=== PATIENT | male | born 1990 | race Two or more races ===

== ENCOUNTER 2024-02-29 18:24 | Emergency (ER) | payer MEDICAID, OTHER ==
[~2024-02-29] VITALS: Ht 172.7 cm; Wt 141.8 kg
--- NOTE | 2024-02-29 19:01 | ED.PDOC ---
History of Present Illness HPI Comments A 33 year old male presents to the ED with a chief complaint of LT sided facial numbness onset today. Patient states he began experiencing LT sided facial numbness today, took Benadryl and did not improve symptoms. Patient denies any past medical history as well as weakness, chest pain, shortness of pain, he adache, nausea, vomiting, diarrhea, dizziness, dysuria, hematuria. No other symptoms or modifying factors present at this time. Patient does not display any signs of facial drooping or inability to close eye. Chief Complaint: Face pain Time Seen by MD: 18:35 Reviewed Notes: Nurses Notes, Medications, Allergies Allergies: Coded Allergies: NO KNOWN ALLERGIES (Unverified , 02/29/24) Information Source: Patient Mode of Arrival: Ambulatory Severity: Moderate Timing: Hours Duration: Since onset Prehospital treatment: None Past Medical History PAST MEDICAL HISTORY: Denies Surgical History: Denies all surgeries Family History Family History: Reviewed,noncontributory to illness, No family hx of Cancer, No family hx of DM, No family hx of Heart marilou, No family hx of HTN, No family hx ofKidney marilou, No family hx of Liver marilou, No family hx of Lung marilou, No family hx of Stroke Social History Smoker: Non-Smoker Alcohol: Denies ETOH Use Drugs: Denies Drug Use Lives In: Home Constitutional: denies: chills, diaphoresis, fatigue, fever, malaise, sweats, weakness, others EENTM: denies: blurred vision, double vision, ear bleeding, ear discharge, ear drainage, ear pain, ear ringing, eye pain, eye redness, hearing loss, mouth pain, mouth swelling, nasal discharge, nose bleeding, nose congestion, nose pain, photophobia, tearing, throat pain, throat swelling, voice changes, others Respiratory: denies: cough, hemoptysis, orthopnea, SOB at rest, shortness of breath, SOB with excertion, stridor, wheezing, others Cardiovascular: denies: chest pain, dizzy spells, diaphoresis, Dyspnea on exertion, edema, irregular heart beat, left arm pain, lightheadedness, palpitations, PND, syncope, others Gastrointestinal: denies: abdomen distended, abdominal pain, blood streaked bowels, constipated, diarrhea, dysphagia, difficulty swallowing, hematemesis, melena, nausea, poor appetite, poor fluid intake, rectal bleeding, rectal pain, vomiting, others Genitourinary: denies: burning, dysuria, flank pain, frequency, hematuria, incontinence, penile discharge, penile sore, pain, testicle pain, testicle swelling, urgency, others Neurological: reports: left sided numbness (facial numbness); denies: dizziness, fainting, headache, left sided weakness, numbness, paresthesia, pre- existing deficit, right sided numbness, right sided weakness, seizure, speech problems, tingling, tremors, weakness, others Musculoskeletal: denies: back pain, gout, joint pain, joint swelling, muscle pain, muscle stiffness, neck pain, others Integumetry: denies: bruises, change in color, change in hair/nails, dryness, laceration, lesions, lumps, rash, wounds, others Allergic/Immunocompromised: denies: Difficulty Healing, Frequent Infections, Hives, Itching, others Hematologic/Lymphatic: denies: anemia, blood clots, easy bleeding, easy bruising, swollen glands, others Endocrine: denies: excessive hunger, excessive sweating, excessive thirst, excessive urination, flushing, intolerance to cold, intolerance to heat, unexplained weight gain, unexplained weight loss, others Psychiatric: denies: anxiety, bipolar disorder, depression, hopeless, panic disorder, schizophrenia, sleepless, suicidal, others All Other Systems: Reviewed and Negative Physical Exam General Appearance: Mild Distress (Distress with some anxiety related to the facial numbness.), Normal, Obese HEENT: Head (Unremarkable cranial evaluation. Left-sided face is unremarkable for trauma. No edema or ecchymosis. No drooping or eyelid lagging.), Normal ENT Inspection, Pharynx Normal, TMs Normal Neck: Full Range of Motion, Non-Tender, Normal, Normal Inspection Respiratory: Chest Non-Tender, Lungs Clear, No Accessory Muscle Use, No Respiratory Distress, Normal Breath Sounds Cardiovascular: No Edema, No JVD, No Murmur, No Gallop, Normal Peripheral Pulses, Regular Rate/Rhythm Breast Exam: Deferred Gastrointestinal: No Organomegaly, Non Tender, No Pulsatile Mass, Normal Bowel Sounds, Soft Genitalia: Deferred Pelvic: Deferred Rectal: Deferred Extremities: No calf tenderness, Normal capillary refill, Normal inspection, Normal range of motion, Non-tender, No pedal edema Musculoskeletal : Apperance: Normal Neurologic: Alert, No Motor Deficits, Normal Affect, Normal Mood, No Sensory Deficits Cerebellar Function: Normal Reflexes: Normal Skin: Dry, Normal Color, Warm Lymphatic: No Adenopathy Was a procedure done? Was a procedure done?: No Differential Dx Considerations may include: Electrolyte abnormality, sepsis, intracranial neoplasm, trigeminal neuralgia, temporal neuritis X-Ray, Labs, Meds, VS Vital Signs Date Time Temp Pulse Resp B/P (MAP) Pulse Ox O2 Delivery O2 Flow Rate FiO2 02/29/24 21:42 82 02/29/24 21:20 87 19 99 Room Air 02/29/24 21:20 98.8 87 19 136/86 (103) 99 98.8 02/29/24 18:48 97.6 88 18 143/96 (112) 99 Lab Test 02/29/24 21:02 Range/Units White Blood Count 11.9 H 4.4-10.8 10^3/uL Red Blood Count 5.61 4.5-5.90 10^6/uL Hemoglobin 15.3 13.5-17.5 g/dL Hematocrit 46.4 41.0-53.0 % Mean Corpuscular Volume 82.7 80.0-100.0 fL Mean Corpuscular Hemoglobin 27.2 L 28.0-32.0 pg Mean Corpuscular Hemoglobin Concent 32.9 32.0-36.0 g/dL Red Cell Distribution Width 14.2 11.8-14.3 % Platelet Count 303 140-450 10^3/uL Mean Platelet Volume 7.2 6.9-10.8 fL Neutrophils (%) (Auto) 56.7 37.0-80.0 % Lymphocytes (%) (Auto) 33.0 10.0-50.0 % Monocytes (%) (Auto) 7.7 0.0-12.0 % Eosinophils (%) (Auto) 2.1 0.0-7.0 % Basophils (%) (Auto) 0.5 0.0-2.0 % Neutrophils # (Auto) 6.7 1.6-8.6 10 ^3/uL Lymphocytes # (Auto) 3.9 0.4-5.4 10 ^3/uL Monocytes # (Auto) 0.9 0-1.3 10 ^3/uL Eosinophils # (Auto) 0.3 0-0.8 10 ^3/uL Basophils # (Auto) 0.1 0-0.2 10 ^3/uL Nucleated Red Blood Cells 0.2 % Sodium Level 141 136-145 mmol/L Potassium Level 4.2 3.5-5.1 mmol/L Chloride Level 106 98-107 mmol/L Carbon Dioxide Level 29 20-31 mmol/L Anion Gap 6 5-15 Blood Urea Nitrogen 10 9-23 mg/dL Creatinine 0.81 0.700-1.30 mg/dL Glomerular Filtration Rate Calc 121 >90 mL/min BUN/Creatinine Ratio 12.3 10.0-20.0 Serum Glucose 91 74-106 mg/dL Calcium Level 9.8 8.7-10.4 mg/dL Current Medications Medications (Trade) Dose Ordered Sig/Genet Route Start Time Stop Time Status Last Admin Aspirin 325 mg ONCE ONCE PO 02/29/24 21:30 02/29/24 21:31 DC 02/29/24 21:28 [place] [id number] Ph: [phone] DIAGNOSTIC IMAGING Diagnostic Imaging Report : [id number] Signed PATIENT: HARI MARCIAL ACCT: [id number] UNIT: [id number] : 1990 LOC: ER ROOM / BED: / AGE / SEX: 33 / M ADM STATUS: REG ER SERVICE 48 ORDERING PHYSICIAN: SOTO KESSLER MD PROCEDURE(s): HWOCT - HEAD WITHOUT CONTRAST REASON: left face numbness ORDER NUMBER(s): [id number], ACCESSION NUMBER(s): [id number] Procedure: CT HEAD WITHOUT CONTRAST Study Date and Requested Time: 02/29/2024 08:53 PM History: left face numbness Comparison: None Dose: CTDI: 66.42 mGy DLP: 1308.58 mGycm Technique: Multiplanar images obtained through the brain without intravenous contrast. Findings: Mild diffuse brain atrophy. Mild chronic small vessel ischemic changes. No hemorrhages, masses, mass effect, midline shift, herniation or cytotoxic edema following a large vascular territory. No intra-axial or extra-axial fluid collections. No evidence of hydrocephalus. The basal cisterns are patent. Nonspecific partially empty sella. The cerebellar tonsils are in normal position. The cerebellum is unremarkable. The orbits and globes are unremarkable. Minimal mucoperiosteal thickening of the ethmoid air cells. Otherwise, the paranasal sinuses and mastoids are clear. There are no worrisome calvarial lesions. Impression: No evidence of acute intracranial abnormality. ATED BY: ANTONETTE NICKERSON DO DICTATED DATE/TIME: 02/29/242110 SIGNED BY: ANTONETTE NICKERSON DO SIGNED DATE/TIME: 02/29/242110 CC: X-Ray, Labs, Meds, VS Comment All studies performed the ED were evaluated by me personally. CT of the head was unremarkable for any acute intracranial process. Laboratories were unremarkable for any systemic concerns. EKG was unremarkable displaying a sinus rhythm of 82, IL interval 131 and QT interval of 371. Normal EKG. Patient seems to be experiencing a transient facial numbness concern. If symptoms continue, patient will need to follow up with his primary care provider for possible neurologic referral and evaluation. Time of 1ST Reevaluation: 22:18 Reevaluation 1ST: Improved Consultation: PCP Patient Education/Counseling: Diagnosis, Treatment, Prognosis Family Education/Counseling: Diagnosis, Treatment, No Family Present Additional Information I reviewed the following notes from patient's past medical encounters: The following tests were ordered, and results were reviewed by me: CT HEAD WITHOUT CONTRAST, CBC, BMP, EKG, EKG, EKG I reviewed and agreed with the following test results read by other providers: CT HEAD WITHOUT CONTRAST I discussed treatment and results with medical personnel and: patient Departure 1 Departure Time of Disposition: 22:20 Impression: Primary Impression: Left facial numbness Disposition: 01 HOME / SELF CARE / HOMELESS Condition: Stable Additional Instructions: Advised patient that is his concerns today should more than likely be transient. If they continue, patient will need to follow up with primary care provider for neurologic referral and evaluation. Discharged With: Self, Friend Critical Care Note Critical Care Time?: No Stability Stability form required: No Heart Score Heart Score: Heart Score Response (Comments) Value History Slightly Suspicious 0 EKG Normal 0 Age <45 0 Risk Factors No known risk factors 0 Troponin Normal limit 0 Total 0 I personally scribed for DAR AKHTAR PAC ([email or web address] on 02/29/24 at 19:01. Electronically submitted by Bhavna Spencer ([email or web address]). I personally scribed for DAR AKHTAR PAC ([email or web address]) on 02/29/24 at 21:08. Electronically submitted by Bhavna Spencer ([email or web address]). I personally scribed for DAR AKHTAR PAC ([employer]) on 02/29/24 at 21:19. Electronically submitted by Benny Pruett ([email or web address]). I personally scribed for DAR AKHTAR PAC ([email or web address]) on 02/29/24 at 21:30. Electronically submitted by Bhavna Spencer ([email or web address]). DAR AKHTAR PAC Feb 29, 2024 19:01
[2024-02-29] MEDS ORDERED: ASPirin 325 MG TAB PO ONE (21:00)
--- NOTE | 2024-02-29 21:13 | DVH ---
Procedure: CT HEAD WITHOUT CONTRAST Study Date and Requested Time: 02/29/2024 08:53 PM History: left face numbness Comparison: None Dose: CTDI: 66.42 mGy DLP: 1308.58 mGycm Technique: Multiplanar images obtained through the brain without intravenous contrast. Findings: Mild diffuse brain atrophy. Mild chronic small vessel ischemic changes. No hemorrhages, masses, mass effect, midline shift, herniation or cytotoxic edema following a large v ascular territory. No intra-axial or extra-axial fluid collections. No evidence of hydrocephalus. The basal cisterns are patent. Nonspecific partially empty sella. The cerebellar tonsils are in normal position. The cerebellum is u nremarkable. The orbits and globes are unremarkable. Minimal mucoperiosteal thickening of the ethmoid air cells. Otherwise, the paranasal sinuses and mastoids are clear. There are no worrisome calvarial lesions. Impression: No evidence of acute intracranial abnormality.
[2024-02-29 21:18] LABS: Basophils # (auto) 0.1 10 ^3/uL (0-0.2); Basophils % (auto) 0.5 % (0.0-2.0); Eosinophils # (auto) 0.3 10 ^3/uL (0-0.8); Eosinophils % (auto) 2.1 % (0.0-7.0); Hematocrit 46.4 % (41.0-53.0); Hemoglobin 15.3 g/dL (13.5-17.5); Lymphocytes # (auto) 3.9 10 ^3/uL (0.4-5.4); Mean Corpuscular Hemoglobin 27.2 pg (28.0-32.0); Mean Corpuscular Hgb Conc. 32.9 g/dL (32.0-36.0); Mean Corpuscular Volume 82.7 fL (80.0-100.0); Monocytes # (auto) 0.9 10 ^3/uL (0-1.3); Monocytes % (auto) 7.7 % (0.0-12.0); Neutrophils # (auto) 6.7 10 ^3/uL (1.6-8.6); Neutrophils % (auto) 56.7 % (37.0-80.0); Nucleated Red Blood Cells % 0.2 %; Platelet Count (auto) 303 10^3/uL (140-450); Red Blood Cells 5.61 10^6/uL (4.5-5.90); Red Cell Distribution Width 14.2 % (11.8-14.3); White Blood Cell 11.9 10^3/uL (4.4-10.8)
[2024-02-29 21:26] LABS: Chloride 106 mmol/L (98-107); Potassium 4.2 mmol/L (3.5-5.1); Sodium 141 mmol/L (136-145)
[2024-02-29 21:27] LABS: Anion Gap 6 (5-15); Carbon Dioxide 29 mmol/L (20-31)
[2024-02-29 21:28] LABS: Calcium 9.8 mg/dL (8.7-10.4)
[2024-02-29] MEDS: ASPirin 325 MG TAB PO ONE (21:28)
[2024-02-29 21:32] LABS: BUN/Creatinine Ratio 12.3 (10.0-20.0); Blood Urea Nitrogen 10 mg/dL (9-23); Glucose 91 mg/dL (74-106)
--- NOTE | 2024-02-29 21:43 | ECG ---
[facility] Test Date: 2024-02-29 Test Time: 21:42:10 Pat Name: HARI MARCIAL Department: ED Room: Gender: M Special Events Coordinator: : 1990 Requested By: SOTO KESSLER Order Number: [id number] Reading MD: Henrry Ram Measurements Intervals [place] Rate: 82 P: 77 W[place]: 131 QRS: 74 QRSD: 102 T: 36 QT: 371 QTc: 434 Interpretive Statements Sinus rhythm Electronically Signed On 03-01-2024 14:20:41 PST by Henrry Ram Please click the below link to view image of tracing.
[2024-02-29 22:28] VITALS: BP 130/76; PULSE 85; RESP 17; TEMP 98.6; O2SAT 97
== END 2024-02-29 22:28 | disposition home or self-care (01) ==
LOC: ER 18:24
DX: R20.0 Anesthesia of skin (principal)
CPT/HCPCS: 36415; 70450; 80048; 85025; 93005